=== PATIENT | female | born 1985 | race Hispanic/Latino ===

== ENCOUNTER 2017-02-07 06:09 | Inpatient (IN) | payer OTHER ==
[2017-02-07] VITALS (7 sets, daily range): BP systolic 107–131; BP diastolic 69–82
[~2017-02-07] VITALS: Ht 152.4 cm; Wt 60.0 kg
[2017-02-07 06:43] LABS: MCH 23.9 PG (29.0-34.0); MCHC 30.5 G/DL (30.0-36.0); MCV 78.4 FL (83-99); PLATELET COUNT 216 K/uL (156-360); RBC DIS.WIDTH-CV 16.9 % (11.8-14.6); RBC DIS.WIDTH-SD 47.7 % (39-53); RED BLOOD COUNT 4.72 M/uL (3.80-5.20); WHITE BLOOD COUNT 9.4 K/uL (4.1-10.2)
[2017-02-07 07:12] LABS: ANION GAP 13 MEQ/L (2-14); CHLORIDE 107 MEQ/L (99-109); POTASSIUM 4.6 MEQ/L (3.7-5.4); SAMPLE HEMOLYSIS CHECK 0; SAMPLE ICTERIC CHECK 0; SAMPLE LIPEMIA CHECK 0; SODIUM 138 MEQ/L (136-147); TOTAL BILIRUBIN 0.4 MG/DL (0.0-1.0)
[2017-02-07 07:16] LABS: EOSINOPHIL (%) 0.3 % (0-5); HEMATOCRIT 31.1 % (36.0-46.0); IMMATURE GRANULOCYTE (%) 1.2 % (0.0-0.7); IMMATURE GRANULOCYTE COUNT 0.1 K/uL; INSTRUMENT ABS NEUTROPHIL CT 5.5 K/uL; LYMPHOCYTE COUNT 2.5 K/uL (1.0-2.8); MCH 24.4 PG (29.0-34.0); MCHC 30.5 G/DL (30.0-36.0); MCV 79.7 FL (83-99); MONOCYTE (%) 9.3 % (3-12); MONOCYTE COUNT 0.8 K/uL (0-0.8); NEUTROPHIL (%) 60.9 % (45-76); NEUTROPHIL COUNT 5.5 K/uL (1.8-6.4); NRBC (%) 1.5 /100 WBC (0-0); PLATELET COUNT 178 K/uL (156-360); RBC DIS.WIDTH-CV 17.2 % (11.8-14.6); RBC DIS.WIDTH-SD 48.4 % (39-53); WHITE BLOOD COUNT 9.1 K/uL (4.1-10.2)
[2017-02-07 07:18] LABS: ALKALINE PHOSPHATASE 475 IU/L (3-129); GFR ESTIMATE (CALCULATED) > 59 mL/min/; GLUCOSE 88 mg/dL (70-99); UREA NITROGEN (BUN) 13 mg/dL (9-23)
[2017-02-07 07:25] LABS: FIBRINOGEN 319 mg/dL (150-450); PROTHROMBIN TIME 11.7 SEC (10.2-12.9)
[2017-02-07 07:27] LABS: PTT 25.1 SEC (25-37)
[2017-02-08 07:16] LABS: EOSINOPHIL (%) 0.1 % (0-5); HEMATOCRIT 26.7 % (36.0-46.0); IMMATURE GRANULOCYTE (%) 0.9 % (0.0-0.7); IMMATURE GRANULOCYTE COUNT 0.1 K/uL; INSTRUMENT ABS NEUTROPHIL CT 8.3 K/uL; LYMPHOCYTE COUNT 3.2 K/uL (1.0-2.8); MCH 23.5 PG (29.0-34.0); MCV 78.5 FL (83-99); NEUTROPHIL (%) 65.4 % (45-76); NEUTROPHIL COUNT 8.3 K/uL (1.8-6.4); NRBC (%) 0.6 /100 WBC (0-0); PLATELET COUNT 165 K/uL (156-360); RBC DIS.WIDTH-CV 17.2 % (11.8-14.6); RBC DIS.WIDTH-SD 48.7 % (39-53); WHITE BLOOD COUNT 12.6 K/uL (4.1-10.2)
[2017-02-08 07:54] LABS: ANION GAP 6 MEQ/L (2-14); CHLORIDE 106 MEQ/L (99-109); GFR ESTIMATE (CALCULATED) > 59 mL/min/; GLUCOSE 79 mg/dL (70-99); POTASSIUM 3.9 MEQ/L (3.7-5.4); SAMPLE HEMOLYSIS CHECK 0; SAMPLE ICTERIC CHECK 0; SAMPLE LIPEMIA CHECK 0; SODIUM 139 MEQ/L (136-147); UREA NITROGEN (BUN) 10 mg/dL (9-23)
[2017-02-08 07:55] LABS: ALKALINE PHOSPHATASE 266 IU/L (3-129); TOTAL BILIRUBIN 0.3 MG/DL (0.0-1.0)
[2017-02-08] MEDS ORDERED: PERCOCET 5/31 TABLET PO (08:06)
[2017-02-08] MEDS ORDERED: IRON325 M1 PO (08:06)
[2017-02-08] MEDS ORDERED: MOTRIN800 MG PO (08:06)
[2017-02-08 08:43] VITALS: BP 132/82
[2017-02-08 13:05] VITALS: BP 113/68
[2017-02-08 16:14] VITALS: BP 119/78
[2017-02-08 19:41] VITALS: BP 113/72
[2017-02-08 23:15] VITALS: BP 115/71
[2017-02-09 02:51] VITALS: BP 120/68
[2017-02-09 07:41] VITALS: BP 106/66
== END 2017-02-09 14:37 | disposition home or self-care (01) | DRG 765 ==
LOC: LDRP-OP 06:09 → 2WEST 06:10 → LDRP-OP 22:00 → 2WEST 02-09 14:37 → LDRP-OP 03-06 09:02
PROVIDERS: Obstetrics & Gynecology
PROC: 10D00Z1 Extraction of Products of Conception, Low, Open Approach (ICD-10-PCS; principal; 2017-02-07)
DX: O26.62 Liver and biliary tract disorders in childbirth (principal); O34.211 Maternal care for low transverse scar from previous cesarean delivery; O99.284 Endocrine, nutritional and metabolic diseases complicating childbirth; K83.1 Obstruction of bile duct; E78.5 Hyperlipidemia, unspecified; Z37.0 Single live birth; Z87.828 Personal history of other (healed) physical injury and trauma; Z3A.40 40 weeks gestation of pregnancy
CPT/HCPCS: 80053; 85025; 85027; 85384; 85610; 85730; 86850; 86900; 86901; J0690; J2274; J2405; J2765; J3010; J7120